=== PATIENT | male | born 1960 | race Caucasian/White ===

== ENCOUNTER 2016-08-09 09:06 | Day surgery (SDC) | payer BC ==
[2016-08-09] MEDS ORDERED: CEFAZOLIN 2 GM/DEXTROSE/100 ML BAG IV ONE (09:31)
[2016-08-09] MEDS ORDERED: LIDOCAINE 1% 5 ML SDV ONE (09:34)
[2016-08-09] MEDS ORDERED: LIDOCAINE 1% 5 ML SDV ID PRN (09:49)
[2016-08-09] MEDS ORDERED: LR 1,000 ML IV ONE (09:49)
[2016-08-09] MEDS ORDERED: ceFAZolin 2 GM/DEXTROSE 100 ML IV ONE (10:30)
[2016-08-09] MEDS ORDERED: LIDO/BUPIVA 10ML SYR IU ONE (10:30)
[2016-08-09] MEDS ORDERED: LIDO/BUPIVA/morphINE 15ML SYR IU ONE (10:30)
[2016-08-09] MEDS ORDERED: LIDO/BUPIVA/NS 60ML SYR IU ONE (10:30)
[2016-08-09] MEDS ORDERED: LIDOCAINE/BUP/NS KNEE 60 ML SYR ONE (10:49)
[2016-08-09] MEDS ORDERED: LIDOCAINE/BUPIVICAINE 10 ML SYR ONE (10:49)
[2016-08-09] MEDS ORDERED: LIDOCAINE/BUP/DURAMORPH 15 ML SYR IF ONE (10:50)
[2016-08-09] MEDS ORDERED: MIDAZOLAM 2 MG/2 ML VIAL ONE (10:58)
[2016-08-09] MEDS ORDERED: PROPOFOL 200 MG/20 ML VIAL ONE (11:02)
[2016-08-09] MEDS ORDERED: fentaNYL 100 MCG/2 ML INJ ONE (11:02)
[2016-08-09] MEDS ORDERED: LIDOCAINE 2% JELLY 5 ML TUBE ONE (11:07)
[2016-08-09] MEDS ORDERED: LIDOCAINE 2% 5 ML SDV ONE (11:07)
[2016-08-09] MEDS ORDERED: DEXAMETHASONE 4 MG/ML VIAL ONE ×2 (11:23→11:24)
[2016-08-09] MEDS ORDERED: ONDANSETRON 4 MG/2 ML VIAL ONE (11:27)
--- NOTE | 2016-08-10 11:46 | GOP ---
[f rep st] OPERATIVE REPORT DATE OF OPERATION: 08/09/2016 SURGEON: Francis Robbins MD ANESTHESIA: General. ANESTHESIOLOGIST: Dr. Lennon. PREOPERATIVE DIAGNOSIS: Right knee medial meniscus tear and medial femoral condyle cartilage defect. POSTOPERATIVE DIAGNOSIS: Right knee medial meniscus tear, medial femoral condyle cartilage defect, and loose cartilage piece. PROCEDURE PERFORMED: Arthroscopic partial medial meniscectomy and debridement of medial femoral condyle defect with removal of loose body, CPT code 49030. MANAGER FIELD SERVICE: Jane Garza PA-C. PATIENT POSITION: Supine. TOURNIQUET TIME: Zero minutes. ARTHROSCOPIC FINDINGS: 1. Normal patella. 2. Normal trochlea. 3. Medial femoral condyle with a grade IV cartilage lesion on the flexion surface measuring 18 x 18 mm with some loose flaky edges. 4. Normal medial tibial plateau. 5. A tear of the posterior medial meniscus. 6. Deficient ACL. 7. Normal lateral femoral condyle. 8. Normal lateral tibial plateau. 9. Normal lateral meniscus. 10. A 6 mm loose cartilage piece. INDICATIONS: The patient is a 56-year-old with persistent right knee pain. Examination and imaging were consistent with a medial meniscus tear and a medial condyle defect, possible loose body. Patient had options discussed and desired to go ahead with an arthroscopic partial medial meniscectomy, debridement. Patient understood the potential risks and benefits, including, but not limited to, bleeding, infection, persistent pain, stiffness, anesthetic risks. DESCRIPTION OF PROCEDURE: The patient was taken to the operating room after undergoing successful general anesthesia. The right lower extremity was prepped and draped in the usual sterile manner. Anatomic landmarks were identified. The anterior, lateral and tibial portal sites were injected with 0.25% Marcaine and 1% lidocaine. The knee was injected with the same. Anterolateral portal was made. The arthroscope was placed in the joint. With the arthroscope in the joint , the anterior medial portal was made. The probe was placed, and the findings are as described above. The medial meniscus was subsequently debrided with the biter and the shaver. There was a radial tear posteriorly. There was a good attachment posteriorly but separation from the root. The medial femoral condyle had some loose cartilage edges. This was a grade 4 lesion. A loose cartilage piece was evident in the lateral compartment. This was removed with the grasper. Following this, the area was then thoroughly irrigated, and small debris was flushed out. The portal sites were closed using 3-0 nylon suture. The knee was injected with 0.25% Marcaine and 1% lidocaine, 5 mg of Duramorph. The patient had a sterile dressing. Patient was awakened and taken to recovery room in stable condition. Sponge, instrument, and needle counts were correct. PLAN: The patient will undergo physical therapy with emphasis on range of motion and strengthening, and will be a candidate for viscous supplementation in the future. /[id number]/MODL MTDD
== END 2016-08-09 14:15 | disposition home or self-care (01) ==
LOC: FSGY 09:06
PROVIDERS: ATTEND Orthopaedic Surgery Sports Medicine
PROC: 0SBC4ZZ Excision of Right Knee Joint, Percutaneous Endoscopic Approach (ICD-10-PCS; principal; 2016-08-09 10:30)
DX: S83.241A Other tear of medial meniscus, current injury, right knee, initial encounter (principal); M95.8 Other specified acquired deformities of musculoskeletal system; M23.51 Chronic instability of knee, right knee; M23.42 Loose body in knee, left knee; X50.0XXA Overexertion from strenuous movement or load, initial encounter; Z82.49 Family history of ischemic heart disease and other diseases of the circulatory system; Z88.0 Allergy status to penicillin
CPT/HCPCS: J0171; J0690; J1100; J2250; J2274; J2405; J2704; J3010

== ENCOUNTER → 2016-11-06 | Outpatient (CLI) | payer BC | LOC: FIMAGING 12:11 | PROVIDERS: ATTEND Family Medicine | DX: R93.7 Abnormal findings on diagnostic imaging of other parts of musculoskeletal system (principal); R05 Cough; R06.2 Wheezing ==

== ENCOUNTER → 2017-07-24 | Outpatient (CLI) | payer BC ==
[~2017-07-24] MED LIST: GADOBUTROL 10 ML VIAL IVP ONE
== END ==
LOC: FIMAGING 15:47
PROVIDERS: ATTEND Urology
DX: C61 Malignant neoplasm of prostate (principal)
CPT/HCPCS: A9585